=== PATIENT | male | born 1940 | race Caucasian/White ===

== ENCOUNTER 2016-09-19 15:49 | Emergency (ER) | payer OTHER ==
[~2016-09-19] VITALS: Ht 182.9 cm; Wt 91.0 kg
[2016-09-19 15:51] VITALS: BP 172/87; PULSE 84; RESP 16; TEMP 98.2; O2SAT 98
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
[2016-09-19 16:58] VITALS: BP 139/73; PULSE 104; RESP 20; O2SAT 98
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
--- NOTE | 2016-09-20 07:05 | EKG ---
Date Performed: 09/19/2016 Time Performed: 17:41:52 PTAGE: 76 years EKG: Sinus rhythm NORMAL ECG NO PREVIOUS TRACING DOCTOR: Abbe Hein Interpretating Date/Time 09/20/2016 07:03:31
== END 2016-09-19 18:25 | disposition home or self-care (01) ==
LOC: NEPD 15:49
DX: R07.89 Other chest pain (principal); E78.00 Pure hypercholesterolemia, unspecified; E11.9 Type 2 diabetes mellitus without complications; I10 Essential (primary) hypertension; V43.52XA Car driver injured in collision with other type car in traffic accident, initial encounter
CPT/HCPCS: 71010; 93005

== ENCOUNTER 2016-10-07 10:27 | Emergency (ER) | payer OTHER ==
[~2016-10-07] VITALS: Ht 182.9 cm; Wt 90.0 kg
[2016-10-07 10:28] VITALS: BP 129/71; PULSE 80; RESP 16; TEMP 98.1; O2SAT 97
--- NOTE | 2016-10-07 10:42 | PD ---
HPI Chief Complaint: Chest Pain Time Seen by Provider: 10:42 Travel History International Travel<30 days: No Contact w/Intl Traveler<30days: No Traveled to known affect area: No [facility] Past Medical History High Cholesterol: Yes Diabetes: Yes Hypertension: Yes Kidney Stones: Yes Past Surgical History Other Surgery: Yes (LITHOTRIPSY) Social History Alcohol Use: No Tobacco Use: No Substance Use: No Allergies-Medications (Allergen,Severity, Reaction): Coded Allergies: No Known Allergies (Unverified , 09/19/16) Reported Meds & Prescriptions Reported Meds & Active Scripts Active Flexeril (Cyclobenzaprine HCl) 5 Mg Tab 5 Mg PO TID PRN 10 Days Meloxicam 15 Mg Tab 15 Mg PO DAILY Reported Simvastatin 40 Mg Tab 40 Mg PO HS Lisinopril 10 Mg Tab 10 Mg PO DAILY Levothyroxine (Levothyroxine Sodium) 25 Mcg Tab 25 Mcg PO DAILY Verapamil ER (Verapamil HCl) 180 Mg Tab 180 Mg PO DAILY Glipizide 5 Mg Tab 5 Mg PO DAILY Take 30 minutes before a meal Metformin (Metformin HCl) 500 Mg Tab 500 Mg PO DAILY With a meal Data Data Last Documented VS Orders Chest, Single Ap (10/07/16 10:53) Sodium Chloride 0.9% Flush (Ns Flush) (10/07/16 11:00) Clonidine (Catapres) (10/07/16 11:00) Acetaminophen (Tylenol) (10/07/16 11:00) Meclizine (Antivert) (10/07/16 11:00) Hand, Complete ([id number]) (10/07/16 ) Iv Access Insert/Monitor (10/07/16 11:21) Creatine Kinase (Cpk) (10/07/16 11:21) Basic Metabolic Panel (Bmp) (10/07/16 11:21) Complete Blood Count With Diff (10/07/16 11:21) Ketorolac Inj (Toradol Inj) (10/07/16 11:30) Orphenadrine Inj (Norflex Inj) (10/07/16 11:30) MDM Scripts Cyclobenzaprine (Flexeril)5 Mg Tab5 Mg PO TID PRN (MUSCLE SPASM) 10 Days Ref 0 Prov:Nia Noriega 10/07/16 Meloxicam 15 Mg Tab15 Mg PO DAILY #10 TAB Ref 0 Prov:Nia Noriega 10/07/16 Rosa Aleman MD Oct 07, 2016 10:42
[2016-10-07] MEDS ORDERED: cloNIDine HCL 0.1 MG TAB PO ONE (11:00)
[2016-10-07] MEDS ORDERED: ACETAMINOPHEN 325 MG TAB PO ONE (11:00)
[2016-10-07] MEDS ORDERED: SODIUM CHLORIDE 0.9% FLUSH 10 ML FLUSH IVF PRN (11:00)
[2016-10-07] MEDS ORDERED: MECLIZINE HCL 25 MG TAB PO ONE (11:00)
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
[2016-10-07] MEDS ORDERED: SIMV40TA PO (11:23)
[2016-10-07] MEDS ORDERED: GLIP5TAB8 PO (11:23)
[2016-10-07] MEDS ORDERED: LEVO25TA4 PO (11:23)
[2016-10-07] MEDS ORDERED: METF500T PO (11:23)
[2016-10-07] MEDS ORDERED: LISI10TA3 PO (11:23)
[2016-10-07] MEDS ORDERED: VERA1TAB10 PO (11:23)
[2016-10-07] MEDS ORDERED: ORPHENADRINE INJ 60 MG/2 ML AMP IV ONE (11:30)
[2016-10-07] MEDS ORDERED: KETOROLAC TROMETHAMINE 30 MG/ML (IVP) VIAL IV PUSH ONE (11:30)
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
[2016-10-07 12:13] LABS: AUTOMATED NEUTROPHIL # 8.1 TH/MM3 (1.8-7.7); BASOPHIL # 0.1 TH/MM3 (0-0.2); BASOPHIL % 0.5 % (0.0-2.0); EOSINOPHIL # 0.3 TH/MM3 (0-0.4); EOSINOPHIL % 2.4 % (0.0-4.0); HEMO FLAGS DIFF FINAL; LYMPHOCYTE # 1.8 TH/MM3 (1.0-4.8); MEAN CELL VOLUME 86.2 FL (80.0-100.0); MEAN CORPUSCULAR HGB CONC 33.7 % (32.0-36.0); MONO % 9.6 % (0.0-8.0); NEUT % 71.5 % (16.0-70.0); PLATELET COUNT 303 TH/MM3 (150-450); RED BLOOD COUNT 4.41 MIL/MM3 (4.50-5.90); RED CELL DISTRIBUTION WIDTH 13.5 % (11.6-17.2); WHITE BLOOD COUNT 11.4 TH/MM3 (4.0-11.0)
[2016-10-07 12:46] LABS: BICARBONATE 23.2 MEQ/L (21.0-32.0); POTASSIUM 4.5 MEQ/L (3.5-5.1)
[2016-10-07] MEDS ORDERED: MELO-1 PO (13:01)
[2016-10-07] MEDS ORDERED: CYCL5TAB PO (13:01)
[2016-10-07 13:32] VITALS: BP 105/56
== END 2016-10-07 13:35 | disposition home or self-care (01) ==
LOC: NEPE 10:27
DX: R07.89 Other chest pain (principal); S60.222A Contusion of left hand, initial encounter; E78.00 Pure hypercholesterolemia, unspecified; E11.9 Type 2 diabetes mellitus without complications; I10 Essential (primary) hypertension; Z79.899 Other long term (current) drug therapy; V49.9XXA Car occupant (driver) (passenger) injured in unspecified traffic accident, initial encounter
CPT/HCPCS: 71010; 73130; 80048; 82550; 85025; 96374; 96375; 99284; J1885; J2360